=== PATIENT | male | born 2000 | race Caucasian/White ===

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

== ENCOUNTER 2020-01-04 00:17 | Emergency (ER) | payer OTHER ==
[~2020-01-04] VITALS: Ht 175.3 cm; Wt 69.9 kg
[2020-01-04 00:24] VITALS: Ht 175.3 cm; Wt 69.9 kg
[2020-01-04 01:39] VITALS: BP 133/71
== END 2020-01-04 01:39 | disposition home or self-care (01) ==
LOC: ED 00:17
DX: J02.8 Acute pharyngitis due to other specified organisms (principal); R11.10 Vomiting, unspecified; Z98.890 Other specified postprocedural states

== ENCOUNTER 2020-01-13 14:43 | Emergency (ER) | payer OTHER, SELFPAY ==
[~2020-01-13] VITALS: Ht 172.7 cm; Wt 67.1 kg
[2020-01-13 14:49] VITALS: Ht 172.7 cm; Wt 67.1 kg
[2020-01-13 15:49] VITALS: BP 111/59
== END 2020-01-13 15:49 | disposition home or self-care (01) ==
LOC: ED 14:43
DX: B34.9 Viral infection, unspecified (principal); Z20.828 Contact with and (suspected) exposure to other viral communicable diseases
CPT/HCPCS: U0003-CS

== ENCOUNTER 2020-03-30 18:31 | Emergency (ER) | payer OTHER ==
[~2020-03-30] VITALS: Ht 175.3 cm; Wt 71.7 kg
[2020-03-30 18:41] VITALS: Ht 175.3 cm; Wt 71.7 kg
[2020-03-30 19:14] VITALS: BP 146/87
== END 2020-03-30 19:14 | disposition home or self-care (01) ==
LOC: ED 18:31
DX: J30.9 Allergic rhinitis, unspecified (principal); Z98.890 Other specified postprocedural states